=== PATIENT | female | born 1945 | race Two or more races ===

== ENCOUNTER 2017-11-02 19:52 | Emergency (ER) | payer OTHER ==
[~2017-11-02] VITALS: Ht 160 cm; Wt 77.1 kg
[~2017-11-02 19:52] MED LIST: ATACAND32 MG; LEVOXYL88 MCG; SYNTHROID75 MCG
== END 2017-11-02 22:24 | disposition home or self-care (01) ==
LOC: ER 19:52
DX: H01.001 Unspecified blepharitis right upper eyelid (principal)

== ENCOUNTER 2019-02-27 19:14 | Emergency (ER) | payer OTHER ==
[~2019-02-27] VITALS: Ht 160 cm; Wt 77.1 kg
== END 2019-02-28 02:18 | disposition home or self-care (01) ==
LOC: ER 19:14
DX: H57.11 Ocular pain, right eye (principal)

== ENCOUNTER 2019-03-02 15:05 | Emergency (ER) | payer OTHER ==
[~2019-03-02] VITALS: Ht 160 cm; Wt 77.1 kg
[2019-03-02] MEDS ORDERED: SYNTHROID88 MCG (15:33)
== END 2019-03-02 20:05 | disposition home or self-care (01) ==
LOC: ER 15:05
DX: R51 Headache (principal)

== ENCOUNTER 2019-03-15 11:35 | Outpatient (CLI) | payer OTHER | END 2019-03-15 11:42 | disposition home or self-care (01) | LOC: LAB 11:35 | DX: D64.89 Other specified anemias (principal); E50.0 Vitamin A deficiency with conjunctival xerosis; J20.8 Acute bronchitis due to other specified organisms; M79.2 Neuralgia and neuritis, unspecified; D44.7 Neoplasm of uncertain behavior of aortic body and other paraganglia ==

== ENCOUNTER → 2019-03-15 | Outpatient (CLI) | payer OTHER ==
[~2019-03-15] MED LIST changes: +SYNTHROID88 MCG
== END | disposition home or self-care (01) ==
LOC: MRI 09:11
DX: M79.2 Neuralgia and neuritis, unspecified (principal); R41.2 Retrograde amnesia
CPT/HCPCS: 70551

== ENCOUNTER 2019-11-20 12:26 | Emergency (ER) | payer OTHER ==
[~2019-11-20] VITALS: Ht 160 cm; Wt 77.1 kg
[2019-11-20] MEDS ORDERED: SYNTHROID75 MCG PO (12:56)
== END 2019-11-20 19:05 | disposition home or self-care (01) ==
LOC: ER 12:26
DX: M54.5 Low back pain (principal)

== ENCOUNTER → 2019-12-06 | Outpatient (CLI) | payer OTHER ==
[~2019-12-06] MED LIST changes: +SYNTHROID75 MCG PO
== END | disposition home or self-care (01) ==
LOC: MRI 11:32
PROVIDERS: ATTEND Internal Medicine Cardiovascular Disease
DX: M43.17 Spondylolisthesis, lumbosacral region (principal); M46.47 Discitis, unspecified, lumbosacral region
CPT/HCPCS: 72148

== ENCOUNTER 2019-12-09 07:37 | Outpatient (CLI) | payer OTHER | END 2019-12-09 07:50 | disposition home or self-care (01) | LOC: MAMO-SONO 07:37 | PROVIDERS: ATTEND Internal Medicine Cardiovascular Disease | DX: Z12.31 Encounter for screening mammogram for malignant neoplasm of breast (principal); N64.59 Other signs and symptoms in breast ==

== ENCOUNTER 2020-04-07 08:35 | Outpatient (CLI) | payer OTHER | END 2020-04-07 08:42 | disposition home or self-care (01) | LOC: RAD 08:35 → RX STUDY 09:45 | PROVIDERS: ATTEND Internal Medicine Cardiovascular Disease | DX: R13.19 Other dysphagia (principal) ==

== ENCOUNTER 2022-09-07 10:32 | Emergency (ER) | payer OTHER ==
[~2022-09-07] VITALS: Ht 160 cm; Wt 54.4 kg
[2022-09-07] MEDS ORDERED: VITAMIN D-40010 MCG PO (11:09)
== END 2022-09-07 17:04 | disposition left against medical advice (07) ==
LOC: ER 10:32
DX: S89.82XA Other specified injuries of left lower leg, initial encounter (principal); W18.39XA Other fall on same level, initial encounter; Y93.89 Activity, other specified; Y92.018 Other place in single-family (private) house as the place of occurrence of the external cause; Z88.2 Allergy status to sulfonamides; Z88.0 Allergy status to penicillin; Z88.6 Allergy status to analgesic agent; E03.9 Hypothyroidism, unspecified; E55.9 Vitamin D deficiency, unspecified

== ENCOUNTER 2024-07-12 10:43 | Outpatient (CLI) | payer OTHER ==
[~2024-07-12 10:43] MED LIST changes: +VITAMIN D-40010 MCG PO
== END 2024-07-12 10:52 | disposition home or self-care (01) ==
LOC: RAD 10:43
PROVIDERS: ATTEND Internal Medicine Cardiovascular Disease
DX: M12.9 Arthropathy, unspecified (principal)